=== PATIENT | male | born 1955 | race Caucasian/White ===

== ENCOUNTER 2018-03-10 07:54 | Inpatient (IN) | payer OTHER, SELFPAY ==
[2018-02-26 12:57] VITALS: BMI 34.3
[2018-03-10] VITALS (11 sets, daily range): BP systolic 97–137; BP diastolic 54–76; PULSE 44–60; RESP 14–20; TEMP 36.1–36.8; O2SAT 94–99; BMI 34.3
--- NOTE | 2018-03-10 09:06 | DI.RAD.S_ITS ---
PROCEDURE: XR KNEE LT 1TO2V INDICATIONS: POST OP TECHNIQUE: 2 view(s) of the knee acquired. COMPARISON: None. FINDINGS: Bones: Patient is status post knee joint arthroplasty. Hardware components are in expected positions. Visualized bony structures are intact. Soft tissues: Overlying postoperative changes are noted. IMPRESSION: Post left total knee arthroplasty changes with anatomic alignment. Dictated by: Adryan Echols M.D. on 03/10/2018 at 12:26 Approved by: Adryan Echols M.D. on 03/10/2018 at 12:26
[2018-03-10] MEDS: ACETAMINOPHEN 325 MG TABLET 975 MG PO ×3 (09:22→20:12)
[2018-03-10] MEDS: LACTATED RINGERS 1,000 ML 42 ML IV (09:22)
[2018-03-10] MEDS: CELECOXIB 200 MG CAPSULE PO (09:23)
[2018-03-10] MEDS: PREGABALIN 75 MG CAPSULE PO (09:23)
[2018-03-10 09:39] LABS: BUN Creatinine Ratio 20.9 (6-22); Blood Urea Nitrogen 23 mg/dL (9-20); Calcium 9.5 mg/dL (8.4-10.2); Carbon Dioxide 25 mmol/L (22-32); Chloride 104 mmol/L (98-107); Estimated Glomerular Filt Rate > 60.0 mL/min (>60); Glucose 56 mg/dL (80-110); HEMOLYSIS 19 (0-50); Potassium 3.8 mmol/L (3.4-5.1); Sodium 141 mmol/L (137-145)
--- NOTE | 2018-03-10 09:50 | PM.PREOP ---
Pre-operative Note Interval Note Pre-op Check: Yes History & Physical Reviewed by Physician and Yes Exam Performed Changes: No
--- NOTE | 2018-03-10 10:02 | PM.OP.1 ---
Operative Date/Time/Diagnoses Date of procedure: 03/10/18 Time of procedure: 11:00 Pre-op diagnosis: Left knee osteoarthritis Post-op diagnosis: same Procedure & Clinicians Procedure: Left total knee replacement Same procedure as scheduled: Yes Indications: The patient has had progressively worsening left knee pain with radiographic changes consistent with arthritis. Non-operative management has failed and the patient has requested total knee replacement. The risks, benefits and alternatives to surgery were discussed with the patient prior to proceeding. Risks discussed included, but were not limited to, failure to relieve pain, stiffness, infection, nerve damage, deep venous thrombosis, pulmonary embolism, stroke, coma, heart attack, permanent paralysis and , as well as the potential need for eventual revision of the prosthetic. Surgeon: Gonzalez John Hollow Handle Knife Assembler: Josselin Raymond Click Yes if Unassisted: No Anesthesia Type: General, Spinal and Local Operative Notes Findings: Moderate tricompartmental osteoarthritis of the left knee Closure Type: primary Specimen(s): none sent Implants & Drains: Implants used in this procedure were manufactured by the [employer] and [employer] and included the BCS II Journey total knee replacement with a size 6 left Oxinium BCS II femur, 5 left non porous tibial base plate, 9 mm cross-linked polyethylene BCS II insert and a 32 mm onel II oval patellar component. Applied: implant(s) Estimated Blood Loss (mL): 50 Blood products transfused: none Tourniquet time (min): 52 Procedure in detail: The patient was seen in the pre-operative area, where the left knee was identified as the operative site and this was marked with my initials. The patient received pre-operative antibiotics, and was taken to the operating room and placed on the operative table in the supine position. After satisfactory anesthesia, a hardening machine operator helper out? was performed. The left leg was encircled with a tourniquet about the proximal thigh, and the leg was prepared from the toes to the tourniquet with ChloroPrep in the usual fashion and draped through sterile drapes. The leg was elevated and exsanguinated with Eschmark bandage and the tourniquet inflated to 250 mmHg pressure. The knee was approached through an approximately 18 cm incision centered over the patella and carried into the knee through a medial parapatellar arthrotomy. The anterior osteophytes and soft tissues were removed. The rotational landmarks of Conway's line and the transepicondylar axis were marked on the femur with electrocautery, and intramedullary guide holes for the femur and tibia were created. The distal femoral cut was made in 6 degrees of valgus using the intramedullary guide at the primary cut setting. The proximal tibial cut was then made using the intramedullary guide, taking 9 mm of bone off the less involved side. The extension gap was checked and the rotation of the femoral component confirmed with the gap balancing blocks. The anterior, posterior and chamfer cuts were then made. The posterior osteophytes and soft tissues were then removed. The posterior capsule was injected with part of a mixture of 50 ml 0.25% Marcaine mixed with 20 ml Exparel and 4 mg of morphine for post-operative pain control. The remainder of this mixture was injected into the capsule and subcutaneous tissues during cement curing. The tibia was prepared with the rotation set by an extra medullary guide. Trial tibial and femoral components were then placed and the intercondylar notch cut through the femoral trial. Range of motion was 0-135 degrees, with good stability throughout the range. The patella was then cut to accommodate the patellar prosthetic. There was no need for a lateral release. The trials were then removed, and the femoral hole plugged with a bone plug. The bone was prepared with pulsatile lavage, and dried with a sponge. Cement was applied and the final prosthetics placed. Excess cement was removed during and after cement curing. After confirming there was no extruded cement posteriorly, the final tibial insert was placed. The knee was copiously irrigated and the tourniquet deflated. Hemostasis was obtained. The capsule was closed with interrupted # 2 polyester sutures. The subcutaneous layer was closed with 3-0 Vicryl, and the skin with a running 3-0 V-Lock suture and SteriStrips. An Aquacel Ag dressing was applied and the patient was taken to recovery having tolerated the procedure well. Complications: none Condition: stable Disposition: PACU Plan for aftercare: The patient will be maintained on a standard total knee replacement protocol with weight bearing as tolerated. The patient will receive aspirin and sequential compression devices for DVT prophylaxis. The patient will be discharged home when safe for the home environment.
[2018-03-10] MEDS: CEFAZOLIN 2 GM/100 ML FROZ.PIGGY IV ×2 (10:10→18:15)
--- NOTE | 2018-03-10 10:32 | SUR.OPER ---
Supine on padded OR bed. Pillow under head, arms secured on padded armboards <90 degree abduction. Safety belt across torso. Non-operative leg secured with tape over blanket over lower leg. Operative leg secured in DeMayo/Reg positioner. Foam padded brace at thigh of operative leg.
--- NOTE | 2018-03-10 10:39 | PC.NURSE ---
Day shift: Pt not on AC unit at this time. Will assess when Pt arrives.
--- NOTE | 2018-03-10 10:47 | SUR.OPER ---
Blood glucose checked at 1040 am in OR by DAVONTE Hinojosa BG is 53
[2018-03-10] MEDS: BUPIVACAINE LIPOSOME 266 MG/20 ML VIAL INJ (10:53)
[2018-03-10] MEDS: BUPIVACAINE 0.25% W/ EPI VIAL 50 ML INJ (10:53)
[2018-03-10] MEDS: MORPHINE 4 MG/ML INJ INJ (10:55)
[2018-03-10] MEDS: TRANEXAMIC ACID 1,000 MG VIAL 1000 MG INJ (10:56)
--- NOTE | 2018-03-10 13:02 | PC.NURSE ---
Day shift: Arrived on unit at approx 1230 from PACU. A7ox3. No pain or nausea. PPP and BODY SHOP FLOORPERSON ok. Can't feel his legs yet but can wiggle toes and feet. RA 99%. Denies chest pain or SOB. Oriented to room and call light. Bed alarm is on. Dressing is Aquacel and NEO wrapped and is CDI. Call light in reach. Spouse in room for support.
[2018-03-10] MEDS: LACTATED RINGERS 1,000 ML 125 ML IV ×2 (13:12→22:02)
[2018-03-10] MEDS: OXYCODONE IR 5 MG TABLET PO ×4 (13:43→23:45)
[2018-03-10] MEDS: GABAPENTIN 600 MG TABLET PO ×2 (16:00→20:14)
[2018-03-10] MEDS: GEMFIBROZIL 600 MG TABLET PO (16:43)
[2018-03-10] MEDS: MONTELUKAST 10 MG TABLET PO (16:47)
[2018-03-10] MEDS: METFORMIN HCL 500 MG TABLET PO (16:47)
[2018-03-10] MEDS: hydrOXYzine pamoate 25 MG CAPSULE PO (19:30)
[2018-03-10] MEDS: IBUPROFEN 600 MG TABLET PO (19:31)
[2018-03-10] MEDS: HYDROMORPHONE 1 MG INJ 0.5 MG IV (19:33)
[2018-03-10] MEDS: ASPIRIN EC 81 MG TABLET PO (20:13)
[2018-03-10] MEDS: ATORVASTATIN 20 MG TABLET PO (20:13)
[2018-03-10] MEDS: AMITRIPTYLINE 25 MG TABLET PO (20:13)
[2018-03-10] MEDS: DOCUSATE 100 MG CAPSULE PO (20:13)
[2018-03-10] MEDS: PRAMIPEXOLE 1 MG TABLET 0.5 MG PO (20:14)
[2018-03-10] MEDS: GLIMEPIRIDE 2 MG TABLET PO (20:14)
[2018-03-10] MEDS: INSULIN GLARGINE 100 UNIT/ML 3ML PEN 58 UNIT SUBCUT (20:21)
--- NOTE | 2018-03-10 23:26 | PC.NURSE ---
1600- Dr John contacted and made aware of pt's HR running aprox 40's and low 50's, which is pt's baseline also. A/O x3, pain to L knee rated 5-7/10 and managed with percolone 5mg Q-3hr, Ibuprofen 600mg PRN, scheduled tylenol 975mg, vistaril 25mg PRN, and dilaudid 0.5mg IVP PRN. Left knee aquacell/acewrap with small shadow drainage and marked boarder, CDI. 98% RA, LS clear, Hx FUENTES, own CPAP for sleep with no O2 bleed-in.Calf SCD's on. Lt hand LR @ 125, BT+ denies nausea, CMS ++ with slight edema to left ankle. Using urinal to void clear yellow urine. CBG 83 and 118, and takes 58 units lantus at bedtime. Signif other rooming in. Call light in reach and bed alarm on.
[2018-03-11] VITALS (7 sets, daily range): BP systolic 122–127; BP diastolic 64–69; PULSE 53–64; RESP 16–18; TEMP 36.7–37; O2SAT 95–98
[2018-03-11] MEDS: CEFAZOLIN 2 GM/100 ML FROZ.PIGGY IV (01:57)
[2018-03-11] MEDS: OXYCODONE IR 5 MG TABLET PO ×4 (03:36→12:42)
[2018-03-11] MEDS: hydrOXYzine pamoate 25 MG CAPSULE PO ×2 (03:36→12:42)
[2018-03-11] MEDS: HYDROMORPHONE 1 MG INJ 0.5 MG IV (06:08)
[2018-03-11] MEDS: IBUPROFEN 600 MG TABLET PO (06:14)
[2018-03-11] MEDS: LACTATED RINGERS 1,000 ML 125 ML IV (06:15)
[2018-03-11 06:19] LABS: Hematocrit 32.9 % (41-53); Hemoglobin 11.6 g/dL (13.5-17.5)
[2018-03-11] MEDS: LEVOTHYROXINE 125 MCG TABLET PO (06:52)
--- NOTE | 2018-03-11 08:28 | PT.IIE ---
Addendum entered and electronically signed by Zuleyma Patino, PT 03/11/18 08:29: I directly supervised and guided this session. Magaly Patino DPRamo Original Note: Current Diagnoses Bilateral primary osteoarthritis of knee (03/10/18) Surgery Performed Operation Date: 03/10/18 10:00 Actual Procedures p Total Knee Arthroplasty(Left) - Gonzalez John MD Surgical History (Last Updated 02/26/18 @ 13:11 by Jacqui Chambers RN) Hx of arthroscopy of left knee (Acute) Hx of elbow surgery (Acute) Hx of shoulder surgery (Acute) Hx of thyroidectomy (Acute) Medical History (Last Updated 02/26/18 @ 13:11 by Jacqui Chambers RN) Asthma (Acute) COPD (chronic obstructive pulmonary disease) (Acute) Diabetes (Acute) Gout (Acute) HTN (hypertension) (Acute) Sleep apnea with use of continuous positive airway pressure (CPAP) (Acute) Physical Therapy Inpatient Evaluation/Re-Eval M1 PT/OT-IP Prior Functional Status Start: 03/10/18 15:40 Freq: NEEDED Status: Active Protocol: Document 03/10/18 15:01 (Rec: 03/10/18 16:09 [email or web address]) Medical Review Prior Functional Status Medical History Reviewed Yes Communication pt able to communicate needs. Prior Functional Level (Other details) Pt reports prior independence with all mobililities including cooking, cleaning, self care, inhome and community ambulation. No assistive devices needed or used. Social History Household Members significant other Living Arrangements House Number of Floors (Floors) One Floor Number of Stairs To Enter/Railing? 1 platform step. No rail. Home Environment High Toilet Tub/Shower Home Equipment Front Wheel Walker Straight Cane Hand Held Shower Grab Bars Near Toilet Additional Social History Comment Works for the [employer] and is able to return to work when he feels ready. Job requires lots of sitting and standing. M2 PT-IP Current Condition Start: 03/10/18 15:40 Freq: NEEDED Status: Active Protocol: Document 03/10/18 15:01 (Rec: 03/10/18 16:05 [email or web address]) Physical Therapy Current Condition Current Condition Evaluation Date 03/10/18 Treatment Diagnosis s/p L TKA Onset Date 03/10/18 Weight Bearing Status Weight Bearing Status Weight Bear as Tolerated M3 PT-IP Subjective Start: 03/10/18 15:40 Freq: NEEDED Status: Active Protocol: Document 03/10/18 15:01 (Rec: 03/10/18 16:05 [email or web address]) Subjective Physical Therapy Visit Type Type Initial Evaluation Visit Start Time 15:01 Visit Stop Time 15:37 Total Visit Minutes 36 Number of CLERICAL SUPERVISOR Visits 0 Physical Therapy Visit Comments Patient Comments Pt feeling ready to try PT. States he can feel his legs and pain is 0/10. Patient Goals The pt plans to d/c home with significant other who is present at this session. Therapy Pain Assessment Pain When Pain Assessed During Exercise Pain Present Pain Present Pain Reported Location Knee Intensity 6 Scale Used Numeric (1 - 10) Pain Management Techniques Apply Cold Timing of Activity with Medications M4 PT-IP Mobility and Gait Start: 03/10/18 15:40 Freq: NEEDED Status: Active Protocol: Document 03/10/18 15:01 (Rec: 03/10/18 16:05 [email or web address]) PT-Bed Mobility Assessment Supine to Sit Supine to Sit Standby Assistance Sit to Supine Sit to Supine Standby Assistance Scooting Scooting to Edge of Bed Standby Assistance Scooting Up and Down in Bed Standby Assistance PT-Transfer Assessment Sit to and From Stand Sit to and from Stand Standby Assistance Equipment Transfer Assistive Device Gait Belt Front Wheeled Walker Comments Mobility Comments All in bed mobilities and sit <> stand are SBA due resting HR low (46 bpm) and symptoms at EOB of dizziness. Dizziness subsides after 2 mins. VSS remain WNL. Gait Assessment Gait Gait Assistance Required: Contact Guard Assist Distance (Feet) 50 Able to Maintain Weight Bearing Status Yes During Gait Assistive Devices Assistive Device Gait Belt Front Wheeled Walker PT-Balance Assessment Sitting Balance and Reactions Static Sitting Balance Ability Fair Dynamic Sitting Balance Ability Fair Standing Balance and Reactions Static Standing Balance Ability Fair Dynamic Standing Balance Ability Fair M5 PT-IP Objective Assessments Start: 03/10/18 15:40 Freq: NEEDED Status: Active Protocol: Document 03/10/18 15:01 (Rec: 03/10/18 16:05 [email or web address]) Orientation Orientation/Cognition Level of Alertness Alert Orientation Name Age Birthday Date Place Situation Gross Range of Motion Lower Extremity ROM Assessment Left Impaired Impairments L knee flexion approx 40 deg Strength Lower Extremity Strength Assessment Within Functional Limits Comments Strength Comments Strength grades 5/5 B for hip flexion, knee flexion, and ankle PF/DF. 3+/5 for knee extension on L. Sensation Assessment Sensation Gross Sensation WNL Comments Sensation Comments light touch on bottom of L foot is intact. M6 PT-IP Treatment Start: 03/10/18 15:40 Freq: NEEDED Status: Active Protocol: Document 03/10/18 15:01 (Rec: 03/10/18 16:05 [email or web address]) Physical Therapy Treatment Exercises Exercises Ankle Pumps Quad Sets Heel Slides Straight Leg Raises Short Arc Quads Education Education Provided Precautions Weight Bearing Status Post-Op Packet Safety M7 PT-IP Assessment and Plan Start: 03/10/18 15:40 Freq: NEEDED Status: Active Protocol: Document 03/10/18 15:01 (Rec: 03/10/18 16:05 [email or web address]) PT Summary Assessment and Plan Potential Rehabilitation Potential Good Status of Condition at Evaluation Stable Summary Impairments Pain ROM Strength Balance Gait Activity Tolerance Progress Towards Goals Progressing Toward Goals Assessment Summary Pt s/p L TKA. His primary impairment noted thus far is limited gait distance and speed. He ambulated 50 ft. CGA with c/o of dizziness. Recommend discharge to home with 24/7 assist and f/u in OP PT once he is able to demonstrate safety with ambulation and 1 platform step SBA. Goals Bed Mobility Goal Independent Transfer Goal Standby Assistance Gait Goal Standby Assistance Gait Distance 150 Other Goals Complete safe ascend/descend platform step X1 with SBA as needed for safe access to home . Frequency of Treatment Frequency Of Treatment Twice a Day Treatment Plan Physical Therapy Treatment Plan Transfer Training Gait Training Therapeutic Exercise Balance Retraining Post Op Education Hot or Cold Pack Neuromuscular Re-ed Coordination Retraining Other Recommendations and Next Treatment Progress gait training. Focus Assess pt function up/down platform step X1. Recommend CGA. Recommendations To Nursing Amount of Assist Needed 1 Person Assist Discharge Recommendations PT Discharge Recommendations Home with 24/7 Assist Outpatient PT
--- NOTE | 2018-03-11 08:36 | PT.IPTN ---
Current Diagnoses Bilateral primary osteoarthritis of knee (03/10/18) Surgery Performed Operation Date: 03/10/18 10:00 Actual Procedures p Total Knee Arthroplasty(Left) - Gonzalez John MD Physical Therapy Treatment Note M2 PT-IP Current Condition Start: 03/10/18 15:40 Freq: NEEDED Status: Active Protocol: Document 03/10/18 15:01 (Rec: 03/10/18 16:05 [email or web address]) Physical Therapy Current Condition Current Condition Evaluation Date 03/10/18 Treatment Diagnosis s/p L TKA Onset Date 03/10/18 Weight Bearing Status Weight Bearing Status Weight Bear as Tolerated M3 PT-IP Subjective Start: 03/10/18 15:40 Freq: NEEDED Status: Active Protocol: Document 03/11/18 08:34 EA (Rec: 03/11/18 08:36 EA [id number]) Subjective Physical Therapy Visit Type Type Patient Refusal Notes At 820 today, patient approach for possible PT session, however refused as he wants to have BF. Agreeable to see after BF. M4 PT-IP Mobility and Gait Start: 03/10/18 15:40 Freq: NEEDED Status: Active Protocol: Document 03/10/18 15:01 (Rec: 03/10/18 16:05 [email or web address]) PT-Bed Mobility Assessment Supine to Sit Supine to Sit Standby Assistance Sit to Supine Sit to Supine Standby Assistance Scooting Scooting to Edge of Bed Standby Assistance Scooting Up and Down in Bed Standby Assistance PT-Transfer Assessment Sit to and From Stand Sit to and from Stand Standby Assistance Equipment Transfer Assistive Device Gait Belt Front Wheeled Walker Comments Mobility Comments All in bed mobilities and sit <> stand are SBA due resting HR low (46 bpm) and symptoms at EOB of dizziness. Dizziness subsides after 2 mins. VSS remain WNL. Gait Assessment Gait Gait Assistance Required: Contact Guard Assist Distance (Feet) 50 Able to Maintain Weight Bearing Status Yes During Gait Assistive Devices Assistive Device Gait Belt Front Wheeled Walker PT-Balance Assessment Sitting Balance and Reactions Static Sitting Balance Ability Fair Dynamic Sitting Balance Ability Fair Standing Balance and Reactions Static Standing Balance Ability Fair Dynamic Standing Balance Ability Fair M5 PT-IP Objective Assessments Start: 03/10/18 15:40 Freq: NEEDED Status: Active Protocol: Document 03/10/18 15:01 (Rec: 03/10/18 16:05 [email or web address]) Orientation Orientation/Cognition Level of Alertness Alert Orientation Name Age Birthday Date Place Situation Gross Range of Motion Lower Extremity ROM Assessment Left Impaired Impairments L knee flexion approx 40 deg Strength Lower Extremity Strength Assessment Within Functional Limits Comments Strength Comments Strength grades 5/5 B for hip flexion, knee flexion, and ankle PF/DF. 3+/5 for knee extension on L. Sensation Assessment Sensation Gross Sensation WNL Comments Sensation Comments light touch on bottom of L foot is intact. M6 PT-IP Treatment Start: 03/10/18 15:40 Freq: NEEDED Status: Active Protocol: Document 03/10/18 15:01 (Rec: 03/10/18 16:05 [email or web address]) Physical Therapy Treatment Exercises Exercises Ankle Pumps Quad Sets Heel Slides Straight Leg Raises Short Arc Quads Education Education Provided Precautions Weight Bearing Status Post-Op Packet Safety M7 PT-IP Assessment and Plan Start: 03/10/18 15:40 Freq: NEEDED Status: Active Protocol: Document 03/10/18 15:01 (Rec: 03/10/18 16:05 [email or web address]) PT Summary Assessment and Plan Potential Rehabilitation Potential Good Status of Condition at Evaluation Stable Summary Impairments Pain ROM Strength Balance Gait Activity Tolerance Progress Towards Goals Progressing Toward Goals Assessment Summary Pt s/p L TKA. His primary impairment noted thus far is limited gait distance and speed. He ambulated 50 ft. CGA with c/o of dizziness. Recommend discharge to home with 24/7 assist and f/u in OP PT once he is able to demonstrate safety with ambulation and 1 platform step SBA. Goals Bed Mobility Goal Independent Transfer Goal Standby Assistance Gait Goal Standby Assistance Gait Distance 150 Other Goals Complete safe ascend/descend platform step X1 with SBA as needed for safe access to home . Frequency of Treatment Frequency Of Treatment Twice a Day Treatment Plan Physical Therapy Treatment Plan Transfer Training Gait Training Therapeutic Exercise Balance Retraining Post Op Education Hot or Cold Pack Neuromuscular Re-ed Coordination Retraining Other Recommendations and Next Treatment Progress gait training. Focus Assess pt function up/down platform step X1. Recommend CGA. Recommendations To Nursing Amount of Assist Needed 1 Person Assist Discharge Recommendations PT Discharge Recommendations Home with 24/7 Assist Outpatient PT
--- NOTE | 2018-03-11 08:41 | CM.DANOTE ---
DCP: Case received, EMR reviewed and met with patient. Introduced self and role. DCP template completed with information currently available. Patient is a 62 year old male who admitted yesterday morning to the care of the hospitalist team. PCP: Dr. Lr. Payer: confirmed: [employer] Patient came into hospital for a left total knee arthroplasty. Patient is alert and oriented, is independent. Lives in [place] with his significant other, and has additional room mates. Patient has no concerns with discharge, as long as he is working with physical therapy. P: DCP to continue to assess. Patient may pursue outpatient physical therapy upon discharge, and will be dependent upon progress in hospital with physical therapy team. Quin Gamino RN/Machine Wood Sander
--- NOTE | 2018-03-11 08:45 | PM.DS.1 ---
History of Present Illness Date Patient Seen: 03/11/18 Time Patient Seen: 08:45 Chief complaint: [id number] LEFT TOTAL KNEE ARTHROPLASTY Narrative: Patient has history of left knee osteoarthritis. Brought to hospital on 03/10/2018 for left total knee arthroplasty by Dr. John. He remained stable postoperatively. Discharge Providers Date of admission: 03/10/18 07:54 Consults: 03/10/18 12:52 Consult to Discharge Planning Routine Comment: Consult to Physical Therapy Evaluate & Treat Comment: Physician Instructions: postop TKA protocol Discharge provider: Naveen Babin PA-C Discharge Date: 03/11/18 Summary Discharge Diagnosis: Status post left total knee arthroplasty by Dr. John Hospital Course: Patient remained stable overnight postop left total knee arthroplasty. Did physical therapy on postop day. Gradually progressed. Ready for discharge to home on postop day 1. He does have physical therapy scheduled at [facility] in [place]. Status at Discharge Functional status at discharge: uses cane/walker Overall status at discharge: other (Patient gradually improving with weight-bearing and range of motion of left knee.) Time Spent with Patient Less than 30 minutes Exam Vital Signs (past 8 hours): - 03/11/18 03:19 03/11/18 04:00 03/11/18 05:30 Temperature 98.6 F Pulse Rate 64 Respiratory Rate 18 Blood Pressure 122/64 Pulse Oximetry 95 95 98 03/11/18 06:00 03/11/18 07:30 03/11/18 08:10 Temperature 98.0 F Pulse Rate 53 L 55 L Respiratory Rate 18 16 Blood Pressure 127/69 Pulse Oximetry 95 95 98 Oxygen Delivery Method Room Air Narrative Exam Narrative: Alert, oriented no acute distress lying in bed. Left leg. Anthony wrap an Aquacel dressing intact with small amount of shadowing. Mild swelling of the knee and lower leg. Calf soft nontender. Good pulses and sensation to her foot. Objective Labs Result Diagrams: 03/11/18 05:50 03/10/18 09:15 Labs: Laboratory Results - last 24 hr 03/10/18 03/11/18 09:15 05:50 Hgb 11.6 L Hct 32.9 L Sodium 141 Potassium 3.8 Chloride 104 Carbon Dioxide 25 BUN 23 H Creatinine 1.10 Estimated GFR > 60.0 BUN/Creatinine Ratio 20.9 Glucose 56 L Calcium 9.5 Discharge Plan Discharge Plan Patient Disposition: Home Discharge comment: Postop appointment on 03/14/2018 at [facility] office. Discharge Med Rec/Prescriptions Prescriptions: No Action levothyroxine 125 mcg Capsule 125 mcg PO DAILY Qty: 0 RF: 0 furosemide 40 mg Tablet 40 mg PO DAILY RF: 0 metformin 500 mg Tablet 500 mg PO BID RF: 0 atorvastatin 20 mg Tablet 20 mg PO BEDTIME RF: 0 insulin glargine [Lantus U-100 Insulin] 100 unit/mL Solution 58 unit SUBCUT BEDTIME RF: 0 lisinopril 20 mg Tablet 2.5 mg PO DAILY RF: 0 glimepiride 2 mg Tablet 2 mg PO BID RF: 0 pramipexole 0.5 mg Tablet 0.5 mg PO BEDTIME RF: 0 amitriptyline 25 mg Tablet 25 mg PO BEDTIME RF: 0 gemfibrozil 600 mg Tablet 600 mg PO BID RF: 0 gabapentin 300 mg Capsule 600 mg PO TID RF: 0 montelukast 10 mg Tablet 10 mg PO QPM RF: 0 insulin aspart U-100 [Novolog Flexpen U-100 Insulin] 100 unit/mL Insulin Pen 15 unit SUBCUT TID RF: 0 fenofibrate 150 mg Capsule 150 mg PO DAILY RF: 0 amlodipine 10 mg Tablet 10 mg PO DAILY RF: 0 Provider Discharge Instructions Diet: Diet as Tolerated Activity: Gradually increase weight-bearing to left leg as tolerated. Continue with [id number] exercises postoperative until starting PT. Cold/Heat Therapy: Ice to knee as needed. Skin/Wound/Dressing Care Report to your healthcare provider any signs of infection, such as:: chills, fever, night sweats, increased pain and unusual drainage Dressing: Keep Aquacel dressing in place until postop visit. Visit Report/Discharge Packet Instructions: DI for Knee Replacement Discharge Data Attending Provider: Gonzalez John Admit Date/Time: 03/10/18 07:54 Quality VTE Deep Vein Thrombosis/Pulmonary Embolism Present on Admission: No
--- NOTE | 2018-03-11 08:52 | P.DS_ITS ---
History of Present Illness Date Patient Seen: 03/11/18 Time Patient Seen: 08:45 Chief complaint: [id number] LEFT TOTAL KNEE ARTHROPLASTY Narrative: Patient has history of left knee osteoarthritis. Brought to hospital on 03/10/2018 for left total knee arthroplasty by Dr. John. He remained stable postoperatively. Discharge Providers Date of admission: 03/10/18 07:54 Consults: 03/10/18 12:52 Consult to Discharge Planning Routine Comment: Consult to Physical Therapy Evaluate & Treat Comment: Physician Instructions: postop TKA protocol Discharge provider: Naveen Babin PA-C Discharge Date: 03/11/18 Summary Discharge Diagnosis: Status post left total knee arthroplasty by Dr. John Hospital Course: Patient remained stable overnight postop left total knee arthroplasty. Did physical therapy on postop day. Gradually progressed. Ready for discharge to home on postop day 1. He does have physical therapy scheduled at [facility] in [place]. Status at Discharge Functional status at discharge: uses cane/walker Overall status at discharge: other (Patient gradually improving with weight- bearing and range of motion of left knee.) Time Spent with Patient Less than 30 minutes Exam Vital Signs (past 8 hours): - 03/11/18 03:19 03/11/18 04:00 03/11/18 05:30 Temperature 98.6 F Pulse Rate 64 Respiratory Rate 18 Blood Pressure 122/64 Pulse Oximetry 95 95 98 03/11/18 06:00 03/11/18 07:30 03/11/18 08:10 Temperature 98.0 F Pulse Rate 53 L 55 L Respiratory Rate 18 16 Blood Pressure 127/69 Pulse Oximetry 95 95 98 Oxygen Delivery Method Room Air Narrative Exam Narrative: Alert, oriented no acute distress lying in bed. Left leg. Anthony wrap an Aquacel dressing intact with small amount of shadowing. Mild swelling of the knee and lower leg. Calf soft nontender. Good pulses and sensation to her foot. Objective Labs Result Diagrams: 03/11/18 05:50 03/10/18 09:15 Labs: Laboratory Results - last 24 hr 03/10/18 03/11/18 09:15 05:50 Hgb 11.6 L Hct 32.9 L Sodium 141 Potassium 3.8 Chloride 104 Carbon Dioxide 25 BUN 23 H Creatinine 1.10 Estimated GFR > 60.0 BUN/Creatinine Ratio 20.9 Glucose 56 L Calcium 9.5 Discharge Plan Discharge Plan Patient Disposition: Home Discharge comment: Postop appointment on 03/14/[address] [facility] office. Discharge Med Rec/Prescriptions Prescriptions: No Action levothyroxine 125 mcg Capsule 125 mcg PO DAILY Qty: 0 RF: 0 furosemide 40 mg Tablet 40 mg PO DAILY RF: 0 metformin 500 mg Tablet 500 mg PO BID RF: 0 atorvastatin 20 mg Tablet 20 mg PO BEDTIME RF: 0 insulin glargine [Lantus U-100 Insulin] 100 unit/mL Solution 58 unit SUBCUT BEDTIME RF: 0 lisinopril 20 mg Tablet 2.5 mg PO DAILY RF: 0 glimepiride 2 mg Tablet 2 mg PO BID RF: 0 pramipexole 0.5 mg Tablet 0.5 mg PO BEDTIME RF: 0 amitriptyline 25 mg Tablet 25 mg PO BEDTIME RF: 0 gemfibrozil 600 mg Tablet 600 mg PO BID RF: 0 gabapentin 300 mg Capsule 600 mg PO TID RF: 0 montelukast 10 mg Tablet 10 mg PO QPM RF: 0 insulin aspart U-100 [Novolog Flexpen U-100 Insulin] 100 unit/mL Insulin Pen 15 unit SUBCUT TID RF: 0 fenofibrate 150 mg Capsule 150 mg PO DAILY RF: 0 amlodipine 10 mg Tablet 10 mg PO DAILY RF: 0 Provider Discharge Instructions Diet: Diet as Tolerated Activity: Gradually increase weight-bearing to left leg as tolerated. Continue with [id number] exercises postoperative until starting PT. Cold/Heat Therapy: Ice to knee as needed. Skin/Wound/Dressing Care Report to your healthcare provider any signs of infection, such as:: chills, fever, night sweats, increased pain and unusual drainage Dressing: Keep Aquacel dressing in place until postop visit. Visit Report/Discharge Packet Instructions: DI for Knee Replacement Discharge Data Attending Provider: Gonzalez John Admit Date/Time: 03/10/18 07:54 Quality VTE Deep Vein Thrombosis/Pulmonary Embolism Present on Admission: No
--- NOTE | 2018-03-11 08:54 | PM.DS.1 ---
History of Present Illness Chief complaint: [id number] LEFT TOTAL KNEE ARTHROPLASTY Narrative: Patient has history of left knee osteoarthritis. Brought to hospital on 03/10/2018 for left total knee arthroplasty by Dr. John. He remained stable postoperatively. Discharge Providers Date of admission: 03/10/18 07:54 Consults: 03/10/18 12:52 Consult to Discharge Planning Routine Comment: Consult to Physical Therapy Evaluate & Treat Comment: Physician Instructions: postop TKA protocol Discharge provider: Naveen Babin PA-C Discharge Date: 03/11/18 Exam Vital Signs (past 8 hours): - 03/11/18 03:19 03/11/18 04:00 03/11/18 05:30 Temperature 98.6 F Pulse Rate 64 Respiratory Rate 18 Blood Pressure 122/64 Pulse Oximetry 95 95 98 03/11/18 06:00 03/11/18 07:30 03/11/18 08:10 Temperature 98.0 F Pulse Rate 53 L 55 L Respiratory Rate 18 16 Blood Pressure 127/69 Pulse Oximetry 95 95 98 Oxygen Delivery Method Room Air Objective Labs Result Diagrams: 03/11/18 05:50 03/10/18 09:15 Labs: Laboratory Results - last 24 hr 03/10/18 03/11/18 09:15 05:50 Hgb 11.6 L Hct 32.9 L Sodium 141 Potassium 3.8 Chloride 104 Carbon Dioxide 25 BUN 23 H Creatinine 1.10 Estimated GFR > 60.0 BUN/Creatinine Ratio 20.9 Glucose 56 L Calcium 9.5 Discharge Plan Discharge Plan Patient Disposition: Home Discharge comment: Postop appointment on 03/14/2018 at [facility] office. Discharge Med Rec/Prescriptions Prescriptions: New aspirin 81 mg Tablet,Delayed Release (Dr/Ec) 81 mg PO BID Qty: 60 RF: 0 Continue levothyroxine 125 mcg Capsule 125 mcg PO DAILY Qty: 0 RF: 0 furosemide 40 mg Tablet 40 mg PO DAILY RF: 0 metformin 500 mg Tablet 500 mg PO BID RF: 0 atorvastatin 20 mg Tablet 20 mg PO BEDTIME RF: 0 insulin glargine [Lantus U-100 Insulin] 100 unit/mL Solution 58 unit SUBCUT BEDTIME RF: 0 lisinopril 20 mg Tablet 2.5 mg PO DAILY RF: 0 glimepiride 2 mg Tablet 2 mg PO BID RF: 0 pramipexole 0.5 mg Tablet 0.5 mg PO BEDTIME RF: 0 amitriptyline 25 mg Tablet 25 mg PO BEDTIME RF: 0 gemfibrozil 600 mg Tablet 600 mg PO BID RF: 0 gabapentin 300 mg Capsule 600 mg PO TID RF: 0 montelukast 10 mg Tablet 10 mg PO QPM RF: 0 insulin aspart U-100 [Novolog Flexpen U-100 Insulin] 100 unit/mL Insulin Pen 15 unit SUBCUT TID RF: 0 fenofibrate 150 mg Capsule 150 mg PO DAILY RF: 0 amlodipine 10 mg Tablet 10 mg PO DAILY RF: 0 Provider Discharge Instructions Diet: Diet as Tolerated Activity: Gradually increase weight-bearing to left leg as tolerated. Continue with [id number] exercises postoperative until starting PT. Cold/Heat Therapy: Ice to knee as needed. Skin/Wound/Dressing Care Dressing: Keep Aquacel dressing in place until postop visit. Visit Report/Discharge Packet Instructions: DI for Knee Replacement Discharge Data Attending Provider: Gonzalez John Admit Date/Time: 03/10/18 07:54 Quality VTE Deep Vein Thrombosis/Pulmonary Embolism Present on Admission: No
--- NOTE | 2018-03-11 08:58 | P.DS_ITS ---
History of Present Illness Chief complaint: [id number] LEFT TOTAL KNEE ARTHROPLASTY Narrative: Patient has history of left knee osteoarthritis. Brought to hospital on 03/10/2018 for left total knee arthroplasty by Dr. John. He remained stable postoperatively. Discharge Providers Date of admission: 03/10/18 07:54 Consults: 03/10/18 12:52 Consult to Discharge Planning Routine Comment: Consult to Physical Therapy Evaluate & Treat Comment: Physician Instructions: postop TKA protocol Discharge provider: Naveen Babin PA-C Discharge Date: 03/11/18 Exam Vital Signs (past 8 hours): - 03/11/18 03:19 03/11/18 04:00 03/11/18 05:30 Temperature 98.6 F Pulse Rate 64 Respiratory Rate 18 Blood Pressure 122/64 Pulse Oximetry 95 95 98 03/11/18 06:00 03/11/18 07:30 03/11/18 08:10 Temperature 98.0 F Pulse Rate 53 L 55 L Respiratory Rate 18 16 Blood Pressure 127/69 Pulse Oximetry 95 95 98 Oxygen Delivery Method Room Air Objective Labs Result Diagrams: 03/11/18 05:50 03/10/18 09:15 Labs: Laboratory Results - last 24 hr 03/10/18 03/11/18 09:15 05:50 Hgb 11.6 L Hct 32.9 L Sodium 141 Potassium 3.8 Chloride 104 Carbon Dioxide 25 BUN 23 H Creatinine 1.10 Estimated GFR > 60.0 BUN/Creatinine Ratio 20.9 Glucose 56 L Calcium 9.5 Discharge Plan Discharge Plan Patient Disposition: Home Discharge comment: Postop appointment on 03/14/2018 at [facility] office. Discharge Med Rec/Prescriptions Prescriptions: New aspirin 81 mg Tablet,Delayed Release (Dr/Ec) 81 mg PO BID Qty: 60 RF: 0 Continue levothyroxine 125 mcg Capsule 125 mcg PO DAILY Qty: 0 RF: 0 furosemide 40 mg Tablet 40 mg PO DAILY RF: 0 metformin 500 mg Tablet 500 mg PO BID RF: 0 atorvastatin 20 mg Tablet 20 mg PO BEDTIME RF: 0 insulin glargine [Lantus U-100 Insulin] 100 unit/mL Solution 58 unit SUBCUT BEDTIME RF: 0 lisinopril 20 mg Tablet 2.5 mg PO DAILY RF: 0 glimepiride 2 mg Tablet 2 mg PO BID RF: 0 pramipexole 0.5 mg Tablet 0.5 mg PO BEDTIME RF: 0 amitriptyline 25 mg Tablet 25 mg PO BEDTIME RF: 0 gemfibrozil 600 mg Tablet 600 mg PO BID RF: 0 gabapentin 300 mg Capsule 600 mg PO TID RF: 0 montelukast 10 mg Tablet 10 mg PO QPM RF: 0 insulin aspart U-100 [Novolog Flexpen U-100 Insulin] 100 unit/mL Insulin Pen 15 unit SUBCUT TID RF: 0 fenofibrate 150 mg Capsule 150 mg PO DAILY RF: 0 amlodipine 10 mg Tablet 10 mg PO DAILY RF: 0 Provider Discharge Instructions Diet: Diet as Tolerated Activity: Gradually increase weight-bearing to left leg as tolerated. Continue with [id number] exercises postoperative until starting PT. Cold/Heat Therapy: Ice to knee as needed. Skin/Wound/Dressing Care Dressing: Keep Aquacel dressing in place until postop visit. Visit Report/Discharge Packet Instructions: DI for Knee Replacement Discharge Data Attending Provider: Gonzalez John Admit Date/Time: 03/10/18 07:54 Quality VTE Deep Vein Thrombosis/Pulmonary Embolism Present on Admission: No
[2018-03-11] MEDS: ACETAMINOPHEN 325 MG TABLET 975 MG PO (10:07)
[2018-03-11] MEDS: AMLODIPINE 5 MG TABLET 10 MG PO (10:08)
[2018-03-11] MEDS: GLIMEPIRIDE 2 MG TABLET PO (10:08)
[2018-03-11] MEDS: GABAPENTIN 600 MG TABLET PO (10:08)
[2018-03-11] MEDS: ASPIRIN EC 81 MG TABLET PO (10:08)
[2018-03-11] MEDS: DOCUSATE 100 MG CAPSULE PO (10:08)
[2018-03-11] MEDS: METFORMIN HCL 500 MG TABLET PO (10:09)
[2018-03-11] MEDS: FENOFIBRATE 145 MG TABLET PO (10:09)
[2018-03-11] MEDS: LISINOPRIL 5 MG TABLET 2.5 MG PO (10:09)
[2018-03-11] MEDS: GEMFIBROZIL 600 MG TABLET PO (10:09)
--- NOTE | 2018-03-11 10:31 | PT.IPTN ---
Current Diagnoses Bilateral primary osteoarthritis of knee (03/10/18) Surgery Performed Operation Date: 03/10/18 10:00 Actual Procedures p Total Knee Arthroplasty(Left) - Gonzalez John MD Physical Therapy Treatment Note M2 PT-IP Current Condition Start: 03/10/18 15:40 Freq: NEEDED Status: Active Protocol: Document 03/10/18 15:01 (Rec: 03/10/18 16:05 [email or web address]) Physical Therapy Current Condition Current Condition Evaluation Date 03/10/18 Treatment Diagnosis s/p L TKA Onset Date 03/10/18 Weight Bearing Status Weight Bearing Status Weight Bear as Tolerated M3 PT-IP Subjective Start: 03/10/18 15:40 Freq: NEEDED Status: Active Protocol: Document 03/11/18 09:00 CLB (Rec: 03/11/18 10:22 CLB [id number]) Subjective Physical Therapy Visit Type Type Treatment Note Visit Start Time 09:00 Visit Stop Time 09:45 Notes Pt willing to do therapy. Number of FURNACE REPAIR MECHANIC Visits 1 Physical Therapy Visit Comments Patient Comments Pt stated his pain is a little higher but the stiffness is worse. Patient Goals The pt plans to d/c home with significant other who is present at this session. Therapy Pain Assessment Pain When Pain Assessed During Mobility Pain Present Pain Present Pain Reported Location Knee Intensity 5 Scale Used Numeric (1 - 10) Pain Management Techniques Apply Cold Timing of Activity with Medications M4 PT-IP Mobility and Gait Start: 03/10/18 15:40 Freq: NEEDED Status: Active Protocol: Document 03/11/18 09:00 CLB (Rec: 03/11/18 10:22 CLB [id number]) PT-Bed Mobility Assessment Supine to Sit Supine to Sit Standby Assistance Sit to Supine Sit to Supine Standby Assistance Scooting Scooting to Edge of Bed Standby Assistance Scooting Up and Down in Bed Standby Assistance PT-Transfer Assessment Sit to and From Stand Sit to and from Stand Standby Assistance Equipment Transfer Assistive Device Gait Belt Front Wheeled Walker Comments Mobility Comments Pt HR 57 before tx increased to 74 with bed mobility. Gait Assessment Gait Gait Assistance Required: Standby Assistance Distance (Feet) 200 Able to Maintain Weight Bearing Status Yes During Gait Assistive Devices Assistive Device Gait Belt Front Wheeled Walker Gait Deviations General Gait Pattern Antalgic Decreased Stride Length Decreased Feet Clearance Step-to Gait Factors Limiting Gait Function Factors Limiting Gait Function Decreased Activity Tolerance Decreased Strength Limited Range of Motion Pain Comments Gait Comments Pt able to ambulate to stairs ~200 ft. Pt has increased use of UE on walker but using small step through gait pattern. Stair Climbing Assessment Evaluation Level of Assist On Stairs Contact Guard Assistance 1 Person Assistance Devices Stair Climbing Assistive Devices Front Wheel Walker Technique/Endurance Stair Climbing Technique Step to Step Number of Steps Climbed 1 Query Text: Stair Climbing Set # Repetitions (reps) 2 Comments Stair Climbing Comments Pt able to perform stair training with assisting. M5 PT-IP Objective Assessments Start: 03/10/18 15:40 Freq: NEEDED Status: Active Protocol: Document 03/10/18 15:01 (Rec: 03/10/18 16:05 [email or web address]) Orientation Orientation/Cognition Level of Alertness Alert Orientation Name Age Birthday Date Place Situation Gross Range of Motion Lower Extremity ROM Assessment Left Impaired Impairments L knee flexion approx 40 deg Strength Lower Extremity Strength Assessment Within Functional Limits Comments Strength Comments Strength grades 5/5 B for hip flexion, knee flexion, and ankle PF/DF. 3+/5 for knee extension on L. Sensation Assessment Sensation Gross Sensation WNL Comments Sensation Comments light touch on bottom of L foot is intact. M6 PT-IP Treatment Start: 03/10/18 15:40 Freq: NEEDED Status: Active Protocol: Document 03/11/18 09:00 CLB (Rec: 03/11/18 10:22 CLB [id number]) Physical Therapy Treatment Exercises Exercises Ankle Pumps Quad Sets Heel Slides Straight Leg Raises Short Arc Quads Education Education Provided Precautions Weight Bearing Status Post-Op Packet Safety M7 PT-IP Assessment and Plan Start: 03/10/18 15:40 Freq: NEEDED Status: Active Protocol: Document 03/11/18 09:00 CLB (Rec: 03/11/18 10:22 CLB [id number]) PT Summary Assessment and Plan Summary Impairments Pain ROM Strength Balance Gait Activity Tolerance Progress Towards Goals Progressing Toward Goals Assessment Summary Pt successfully completed stair training with assisting. Pt is SBA for bed mobility with Min A of LLE( able to assist pt). Pt ambulated ~200ft SBA with use of UE with step through gait pattern. Pt seems able to d/c home with 24/7 assist of when medically stable. Goals Bed Mobility Goal Independent Transfer Goal Standby Assistance Gait Goal Standby Assistance Gait Distance 150 Other Goals Complete safe ascend/descend platform step X1 with SBA as needed for safe access to home . Frequency of Treatment Frequency Of Treatment Twice a Day Recommendations To Nursing Amount of Assist Needed 1 Person Assist Discharge Recommendations PT Discharge Recommendations Home with 24/12 Assist Outpatient PT
--- NOTE | 2018-03-11 12:46 | PC.NURSE ---
Day shift: Pt left unit via WC with CAGE CASHIER and spouse to private car at approx 1245. Paperwork signed and all questions answered. Medicated for pain just prior to d/c per EMAR. Has all personal belongings.
== END 2018-03-11 13:12 | disposition home or self-care (01) | DRG 470 ==
PROVIDERS: Anesthesiology; Admitting Provider Orthopaedic Surgery; Visit Provider Orthopaedic Surgery
PROC: 0SRD0JZ Replacement of Left Knee Joint with Synthetic Substitute, Open Approach (ICD-10-PCS; CPT 27447; principal; 2018-03-10 10:00)
DX: M17.12 Unilateral primary osteoarthritis, left knee (principal); E11.9 Type 2 diabetes mellitus without complications; Z79.4 Long term (current) use of insulin; E07.9 Disorder of thyroid, unspecified; G47.33 Obstructive sleep apnea (adult) (pediatric); I10 Essential (primary) hypertension; M10.9 Gout, unspecified; J44.9 Chronic obstructive pulmonary disease, unspecified; Z87.891 Personal history of nicotine dependence
CPT/HCPCS: 36415; 73560; 80048; 85014; 85018; 94760; 97110; 97116; 97161; C1776; C9290; J0690; J1170; J2250; J2270

== ENCOUNTER → 2020-07-05 10:00 | Outpatient (CLI) | payer MEDICARE, SELFPAY ==
[2018-03-10 13:24] VITALS: BMI 34.3
[2020-07-05 10:55] LABS: Hemoglobin A1C% w Est Avg Glu 7.7 % (4.0-6.0)
[2020-07-05 11:00] LABS: Add Manual Diff / Slide Review NO; Basophils Absolute Auto 0 /uL (0-100); Basophils Percent Auto 0.5 % (0-2); Eosinophils Absolute Auto 100 /uL (0-450); Eosinophils Percent Auto 2.6 % (2-4); Hematocrit 35.8 % (41-53); Hemoglobin 12.4 g/dL (13.5-17.5); Lymphocytes Absolute Auto 800 /uL (1100-4500); Lymphocytes Percent Auto 17.5 % (25-40); Mean Corpuscular HGB Conc 34.7 % (30-36); Mean Corpuscular Hemoglobin 33.1 PG (26-34); Mean Corpuscular Volume 95.3 fL (80-100); Monocytes Absolute Auto 400 /uL (0-900); Monocytes Percent Auto 9.7 % (3-14); Neutrophils Absolute Auto 3000 /uL (1500-7000); Neutrophils Percent Auto 69.7 % (50-75); Platelet Count 161 X10^3/uL (150-400); Red Blood Cell Count 3.76 X10^6/uL (4.5-5.9); Red Cell Distribution Width 14.5 % (11.6-14.8); White Blood Cell Count 4.4 X10^3/uL (4.5-11.0)
[2020-07-05 11:11] LABS: BUN Creatinine Ratio 23.2 (6-22); Blood Urea Nitrogen 22 mg/dL (9-20); Calcium 9.3 mg/dL (8.4-10.2); Carbon Dioxide 27 mmol/L (22-32); Chloride 103 mmol/L (98-107); Estimated Glomerular Filt Rate > 60.0 mL/min (>60); Glucose 103 mg/dL (80-110); HEMOLYSIS 22 (0-50); Potassium 3.9 mmol/L (3.4-5.1); Sodium 140 mmol/L (137-145)
== END ==
PROVIDERS: Referring Provider Orthopaedic Surgery Adult Reconstructive Orthopaedic Surgery; Visit Provider Orthopaedic Surgery Adult Reconstructive Orthopaedic Surgery
DX: Z01.818 Encounter for other preprocedural examination (principal); Z01.812 Encounter for preprocedural laboratory examination; R73.9 Hyperglycemia, unspecified
CPT/HCPCS: 36415; 80048; 83036; 85025; 93005

== ENCOUNTER 2020-07-27 09:02 | Day surgery (SDC) | payer MEDICARE, SELFPAY ==
[2018-03-10 13:24] VITALS: BMI 34.3
[2020-07-27] VITALS (13 sets, daily range): BP systolic 95–163; BP diastolic 51–88; PULSE 55–77; RESP 12–20; TEMP 36.3–36.7; O2SAT 92–99; BMI 32.3
[2020-07-27] MEDS: LACTATED RINGERS 1,000 ML 42 ML IV (09:59)
--- NOTE | 2020-07-27 11:23 | PM.PREOP ---
Pre-operative Note COVID-19 COVID-19 status: Negative Result date/Date tested (Pos, Neg/Pending): 07/25/20 Interval Note History & Physical reviewed/Exam performed by Physician: Yes Changes to H&P: No H&P completed within 30 days and has changed as indicated here:: Plan for left knee partial patelectomy, reinforcement of extensor mechanism with alolgraft, possible quad turndown
[2020-07-27] MEDS: CEFAZOLIN 2 GM/100 ML FROZ.PIGGY IV ×2 (11:57→20:05)
[2020-07-27] MEDS: TRANEXAMIC ACID 1,000 MG VIAL 2000 MG INJ (12:10)
--- NOTE | 2020-07-27 12:21 | SUR.OPER ---
Supine on padded OR bed. Pillow under head, arms secured on padded armboards <90 degree abduction. Safety belt across torso. Non-operative leg secured with tape over blanket over lower leg. Operatiive leg on Nathe foam roll positioner, under control of surgeon. Foam padded brace at thigh of operative leg.
[2020-07-27] MEDS: ROPIVACAINE 0.5% PF 5 MG/ML 20ML VIAL 40 ML INJ (12:27)
[2020-07-27] MEDS: MORPHINE 4 MG/ML INJ INJ (12:28)
[2020-07-27] MEDS: KETOROLAC 30 MG/ML VIAL IV (12:28)
--- NOTE | 2020-07-27 13:56 | PM.OP.1 ---
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 Surgeon: Gigi Pond Health Information Management Director: Raphael Leone Anesthesia Type: General Operative Notes Findings: Fragmented left patella with AVN and with loose patellar button component. Closure Type: primary Specimen(s): none sent Prosthetic devices, grafts, tissues, transplants, or devices: [employer] 2 left, size 5-6 constrained 11 mm articular polyethylene Achilles tendon without bone 30 cm in length Estimated Blood Loss (mL): 100 Tourniquet time (min): 60 Procedure in detail: Patient was met in the preoperative holding area where the site and side of surgery were marked by . Informed consent had been signed in clinic but was also reviewed in the preoperative holding area. Risks and benefits were discussed. Risks include infection, extensor lag, need for future surgeries, incomplete relief of symptoms, continued fragmentation, fracture, damage to local structures such as vessels nerves, DVT, PE, , etc.. Patient demonstrates understanding the risks and benefits and wishes to proceed. Patient was then brought back in the operating room where he was induced under general anesthesia. A nonsterile tourniquet was then placed in the left thigh and left lower extremity then prepped and draped in normal sterile fashion. A surgical time-out was performed verifying the site and side of surgery as well as the name of the patient. The left lower extremity was then exsanguinated using Esmarch and a tourniquet was inflated 250 mm of mercury. His previous anterior knee incision was used for the revision a 10. Blade was used to open up the skin and the incision was extended approximately 2 cm proximal. Medial and lateral flaps were then elevated with a new 10. Blade. At this point our medial parapatellar arthrotomy was marked out and fusion could be felt in the knee as well as bony fragments. Medial parapatellar arthrotomy was then performed copious synovial fluid was aspirated and the patellar button was loose within the joint and was removed. A medial peel was then performed as well as loosening of the patella from the anterior tibia a partial synovectomy was then performed as well as clearing of the medial and lateral gutters. At this point the patella was able to be everted there was 1 large bony fragment which was attached to the extensor mechanism still as well as a fragment which was medial to this which was rather small and this was removed using electrocautery. Due to fragmentation of the patella there were small bony and cement fragments within the knee. I could see the polyethylene was undergoing accelerated wear. The polyethylene was then removed back the knee was also cleaned the knee was then pulse lavaged with normal saline to remove any bony fragments and a new polyethylene was placed. I decided to go with a constrained polyethylene do the extensor mechanism weakness with AVM. A size 5 6 left 11 mm thick constrained polyethylene was then placed. Verifying the both medial and lateral tabs were well seated. The patellar fragment which remained attached to the extensor mechanism was too thin to resurface. At this point a large lateral release was performed to help with realignment of the bony fragment into the trochlear groove. A [id number] closure of the medial parapatellar arthrotomy was performed using 1. Vicryl in interrupted fashion. Achilles allograft was then overlaid the extensor mechanism and tacked down into place using 1. Vicryl in interrupted fashion followed b interrupted FiberWire 2. The Achilles was then trimmed to size. Two Vicryl was then used in the subcutaneous layer followed by fareed on skin. Complications: none Post-operative Condition: stable Disposition: PACU Plan for aftercare: WBAT in a knee immobilizer. OK to bend knee to 15 degrees when not weight bearing, 24 hours post-op abx, ASA 81mg BID for 6 weeks for DVT prophylaxis
[2020-07-27] MEDS: fentaNYL 100 MCG/2 ML INJ IV ×2 (14:23→14:30)
[2020-07-27] MEDS: OXYCODONE IR 5 MG TABLET PO ×3 (14:32→18:05)
[2020-07-27] MEDS: ACETAMINOPHEN 325 MG TABLET 650 MG PO ×2 (16:35→20:01)
[2020-07-27] MEDS: MONTELUKAST 10 MG TABLET PO (16:35)
[2020-07-27] MEDS: LACTATED RINGERS 1,000 ML 100 ML IV (16:36)
[2020-07-27] MEDS: ASPIRIN EC 81 MG TABLET PO (20:01)
[2020-07-27] MEDS: GABAPENTIN 600 MG TABLET PO (20:01)
[2020-07-27] MEDS: DOCUSATE 100 MG CAPSULE PO (20:01)
[2020-07-27] MEDS: ATORVASTATIN 20 MG TABLET PO (20:01)
[2020-07-27] MEDS: METFORMIN HCL 500 MG TABLET PO (20:01)
[2020-07-27] MEDS: GLIMEPIRIDE 2 MG TABLET PO (20:01)
[2020-07-27] MEDS: PRAMIPEXOLE 0.25 MG TABLET 0.5 MG PO (20:02)
[2020-07-27] MEDS: gemfibroziL 600 MG TABLET PO (20:02)
[2020-07-27] MEDS: AMITRIPTYLINE 25 MG TABLET PO (20:06)
[2020-07-27 21:36] LABS: Add Manual Diff / Slide Review NO; Basophils Absolute Auto 100 /uL (0-100); Eosinophils Absolute Auto 100 /uL (0-450); Eosinophils Percent Auto 1.4 % (2-4); Hematocrit 32.7 % (41-53); Hemoglobin 11.4 g/dL (13.5-17.5); Lymphocytes Absolute Auto 1000 /uL (1100-4500); Lymphocytes Percent Auto 14.9 % (25-40); Mean Corpuscular Hemoglobin 32.8 PG (26-34); Mean Corpuscular Volume 93.7 fL (80-100); Monocytes Absolute Auto 600 /uL (0-900); Monocytes Percent Auto 8.4 % (3-14); Neutrophils Absolute Auto 5200 /uL (1500-7000); Neutrophils Percent Auto 74.3 % (50-75); Platelet Count 217 X10^3/uL (150-400); Red Blood Cell Count 3.48 X10^6/uL (4.5-5.9)
[2020-07-27] MEDS: INSULIN GLARGINE 100 UNIT/ML 3ML PEN 42 UNIT SUBCUT (22:13)
[2020-07-28] MEDS: CEFAZOLIN 2 GM/100 ML FROZ.PIGGY IV (03:27)
[2020-07-28 03:31] VITALS: BP 116/75; PULSE 70; RESP 18; TEMP 36.2; O2SAT 95
[2020-07-28] MEDS: OXYCODONE IR 5 MG TABLET PO ×2 (04:22→08:39)
[2020-07-28 05:41] LABS: Hematocrit 31.2 % (41-53); Hemoglobin 10.8 g/dL (13.5-17.5)
[2020-07-28] MEDS: LEVOTHYROXINE 125 MCG TABLET PO (06:12)
--- NOTE | 2020-07-28 08:23 | P.PN_ITS ---
Subjective Subjective Date Patient Seen: 07/28/20 Time Patient Seen: 08:23 Interval history: POD #1 s/p Left knee partial patellectomy, polyethylene exchange, patellar button removal, and extensor mechanism reinforcement with allograft with Dr. Pond. Patient's pain is well controlled. He does complain of shooting pain in his quad and knee. Voiding without difficulty or assistance. Exam Vital Signs (past 8 hours): - 07/28/20 03:31 Temperature 97.1 F L Pulse Rate 70 Respiratory Rate 18 Blood Pressure 116/75 Pulse Oximetry 95 Oxygen Delivery Method Room Air,CPAP Oxygen Flow Rate 0 Narrative Exam Narrative: Patient sitting up in bed in NAD. He is alert and oriented X3. Calves are soft, compressible, and nontender bilaterally. SILT throughout BLEs. SCDs on and functioning. DP pulses symmetrical. He is able to actively dorsiflex and plantarflex. Dressing is CDI. Objective Labs Result Diagrams: 07/28/20 05:21 Labs: Laboratory Results - last 24 hr 07/27/20 07/28/20 21:19 05:21 WBC 7.0 RBC 3.48 L Hgb 11.4 L 10.8 L Hct 32.7 L 31.2 L MCV 93.7 MCH 32.8 MCHC 35.0 RDW 14.0 Plt Count 217 Neut % (Auto) 74.3 Lymph % (Auto) 14.9 L [place] % (Auto) 8.4 Eos % (Auto) 1.4 L Baso % (Auto) 1.0 Neut # (Auto) 5200 Lymph # (Auto) 1000 L [place] # (Auto) 600 Eos # (Auto) 100 Baso # (Auto) 100 PFSH Medical History Asthma Closed fracture of left patella with delayed healing COPD (chronic obstructive pulmonary disease) Diabetes Gout HTN (hypertension) Sleep apnea with use of continuous positive airway pressure (CPAP) Thyroid disease Surgical History History of total knee arthroplasty Hx of arthroscopy of left knee Hx of elbow surgery Hx of shoulder surgery Hx of thyroidectomy Social History household members: significant other Smoking Status: Former smoker alcohol intake: current Assessment & Plan Post-op Postoperative Procedures: Procedures Operation Date: 07/27/20 10:45 Actual Procedures Side Surgeon p partial patellectomy and poly exchange, allograft reinforcement of extensor mechanism Left Gigi Pond MD Patient can mobilize with PT today. WBAT in knee immobilizer. Ok to bend to 15 degrees when not weight bearing. ASA for VTE prophylaxis. Will start muscle relaxant for muscle spasms. Continue oxycodone. Patient will likely DC home today. Quality VTE Deep Vein Thrombosis/Pulmonary Embolism Present on Admission: No
[2020-07-28] MEDS: ACETAMINOPHEN 325 MG TABLET 650 MG PO (08:35)
[2020-07-28] MEDS: ASPIRIN EC 81 MG TABLET PO (08:36)
[2020-07-28] MEDS: DOCUSATE 100 MG CAPSULE PO (08:36)
[2020-07-28] MEDS: AMLODIPINE 5 MG TABLET 10 MG PO (08:36)
[2020-07-28] MEDS: GLIMEPIRIDE 2 MG TABLET PO (08:37)
[2020-07-28] MEDS: gemfibroziL 600 MG TABLET PO (08:37)
[2020-07-28] MEDS: FENOFIBRATE 145 MG TABLET PO (08:37)
[2020-07-28] MEDS: FUROSEMIDE 40 MG TABLET PO (08:37)
[2020-07-28] MEDS: GABAPENTIN 600 MG TABLET PO (08:37)
[2020-07-28 08:38] VITALS: BP 118/71; PULSE 67
[2020-07-28] MEDS: lisinopriL 5 MG TABLET 2.5 MG PO (08:38)
[2020-07-28] MEDS: METFORMIN HCL 500 MG TABLET PO (08:39)
[2020-07-28 08:41] VITALS: BP 118/71; PULSE 65; RESP 18; TEMP 36.2; O2SAT 98
--- NOTE | 2020-07-28 09:24 | CM.DANOTE ---
Patient is a 64 year old male who was admitted on 07/27/20 for LTK Revision. Pt has [facility] for insurance and his PCP is in [facility]. EMR was reviewed. Per Ortho, pt tolerated procedure well and his second knee surgery on the left and likely stable for d/c after PT eval and recommendations today. SW met bedside with pt and spouse Mary Ann and they confirm they live in [place] and pt is mostly independent with ADL's although knee pain has limited him lately. Pt has a cane that he uses for long distances and still drives some and spouse can provide assist at d/c. Pt states he has an outpt PT facility close to his house in [place] that he is calling to set up outpt PT after he gets home. Pt and spouse do not anticipate any needs at d/c and spouse can provide transport. Pt still having fair amount of pain but just received pain medication to help with his PT eval this morning. Plan: SW to follow closely after PT eval this morning and recommendations to determine if pt safe for d/c home today via spouse POV and any further needs. NEMESIO Gloria Discharge Planning/Care Management CM Discharge Assessment Start: 07/28/20 09:22 Freq: Status: Active Protocol: Document 07/28/20 09:22 BF (Rec: 07/28/20 09:23 [id number]) Discharge Planning Assessment Assigned Assayer Helper NEMESIO Jones DPOA/Assigned Designee Name Mary Ann spouse Advance Directives? No: Declines further information Advance Directives on File No History Provided By Patient,Medical Record Has Patient been admitted in last 30 No days? Prior Living Arrangements Apartment/Condo Household Members significant other Type of transporation used prior to Drives own vehicle admit Independent with ADL's Yes Is patient alert and oriented? Yes Caregiver for Another No Community Services used prior to Physical Therapy admission: DME Already Rented / Owned Cane Patient/Family Preference OP PT Therapy Barriers to Discharge No Discharge Plan Home Community Services Physical Therapy Transportation Arrangement Significant other Referrals Initiated None needed Whiteboard Updated in Patient Room with Yes name and ext. # of Assayer Helper Review Status In Process Please Provide Date Initial DC 07/28/20 Assessment Was Performed Next Review Type Continued Stay Review Pre-Anesthesia Assessment Start: 07/19/20 10:58 Freq: Status: Active Protocol: Document 07/19/20 10:58 [facility] (Rec: 07/19/20 11:06 [facility] [id number]) Pre-Anesthesia Assessment Patient Information Reviewed Via Chart Review Diagnostic Results BMP/CMP,CBC,EKG Comment A1c Seen Specialist in Last 12 Months Yes Specialist Seen Orthopedist Preferred Language Hebrew Height 182.88 cm Hx Anesthesia Reactions No Hx Family Anesthesia Reaction No Hx Malignant Hyperthermia No Hx Blood Transfusions No Permit Coordinator No alcohol intake former Smoking Status Former smoker Tobacco type cigarettes how long ago did patient quit smoking Quit approx 4 years ago, smoked x 26 years overall Substance Use Type does not use Does patient have [place]/SOB No Hx Sleep Apnea Yes CPAP/BIPAP use prescribed and used routinely Can You Climb a Flight of Stairs Without Yes SOB Hx Chest Pain No Hx SOB No Hx Syncope or Dizziness No Cardiac Testing No Hx Pacemaker/ICD No Hx Urinary Self Catheterization No Diabetes Yes Hx Drug Resistant Organism No Presence of External or Internal Medical Yes: L TKA Devices Lives With significant other Patient Discharge Plan Description Return Home Do You Have Any Spiritual Beliefs That No May Affect Your HC Choices? Do You Have Any Cultural Practices That No May Affect Your HC Choices? Emergency Contact Name Sierra White (KarenOYany) Emergency Contact Advance Directives? No: Declines further information Power of Composite Bond Technician No
--- NOTE | 2020-07-28 10:02 | PT.IIE ---
Current Diagnoses Displaced comminuted fracture of left patella, subsequent encounter for closed fracture with delayed healing (07/27/20) Presence of left artificial knee joint (07/27/20) Surgery Performed Operation Date: 07/27/20 10:45 Actual Procedures p partial patellectomy and poly exchange, allograft reinforcement of extensor mechanism(Left) - Gigi Pond MD Surgical History (Last Reviewed 07/28/20 @ 08:25 by Blanca Galindo PA-C) History of total knee arthroplasty Hx of arthroscopy of left knee Hx of elbow surgery Hx of shoulder surgery Hx of thyroidectomy Medical History (Last Reviewed 07/28/20 @ 08:24 by Blanca Galindo PA-C) Asthma Closed fracture of left patella with delayed healing COPD (chronic obstructive pulmonary disease) Diabetes Gout HTN (hypertension) Sleep apnea with use of continuous positive airway pressure (CPAP) Thyroid disease Physical Therapy Inpatient Evaluation/Re-Eval M1 PT/OT-IP Prior Functional Status Start: 07/28/20 11:07 Freq: NEEDED Status: Active Protocol: Document 07/28/20 10:02 AB (Rec: 07/28/20 11:21 AB [id number]) Medical Review Prior Functional Status Medical History Reviewed Yes Communication able to make needs known Mobility and Gait pt stated that he is independent with all mobilities and ambulation without AD Social History Household Members significant other Living Arrangements Apartment/Condo Number of Floors (Floors) Two Floors Number of Stairs To Enter/Railing? 1 step to enter ; pt will stay on main level of the house Home Environment Standard Height Toilet,Tub/ Shower Home Equipment Straight Cane,Hand Held Shower Additional Social History Comment spouse stated that they are going to get a FWW and a tub transfer bench on their way home M2 PT-IP Current Condition Start: 07/28/20 11:07 Freq: NEEDED Status: Active Protocol: Document 07/28/20 10:02 AB (Rec: 07/28/20 11:21 AB [email or web address]) Physical Therapy Current Condition Current Condition Evaluation Date 07/28/20 Treatment Diagnosis s/p L knee partial patellectomy; difficulty in walking Onset Date 07/27/20 Precautions Brace L knee immobilizer Other Precautions MD order: ok to bend knee to 15 degrees when not weight bearing Weight Bearing Status Weight Bearing Status Weight Bear as Tolerated Allowed Weight Bearing Amount (enter % LLE WBAT with knee immobilizer or #) (%) M3 PT-IP Subjective Start: 07/28/20 11:07 Freq: NEEDED Status: Active Protocol: Document 07/28/20 10:02 AB (Rec: 07/28/20 11:21 AB [email or web address]) Subjective Physical Therapy Visit Type Type Initial Evaluation Visit Start Time 10:02 Visit Stop Time 10:32 Total Visit Minutes 30 Number of SENIOR NETWORK ENGINEER Visits 0 Physical Therapy Visit Comments Patient Comments pt is agreeable to do PT Therapy Pain Assessment Pain When Pain Assessed At Rest Pain Present Pain Present Pain Reported Location Knee Intensity 7 Scale Used Numeric (0 - 10) Pain Management Techniques Distraction,Elevation, Modification of Treatment,Re- positioning,Timing of Activity with Medications M4 PT-IP Mobility and Gait Start: 07/28/20 11:07 Freq: NEEDED Status: Active Protocol: Document 07/28/20 10:02 AB (Rec: 07/28/20 11:21 AB [id number]) PT-Bed Mobility Assessment Supine to Sit Supine to Sit Minimal Assistance,1 Person Assistance PT-Transfer Assessment Sit to and From Stand Sit to and from Stand Standby Assistance,Contact Guard Assistance,Use of Upper Extremities Equipment Transfer Assistive Device Gait Belt,Front Wheeled Walker Orthotic/Prosthetic Devices or Brace: Yes Transfers Transfer Destination Chair Transfer Technique ambulated using FWW Transfer Ability Level of Assist Standby Assistance,Contact Guard Assistance,1 Person Assistance,Use of Upper Extremities Comments Mobility Comments educated pt on precautions. educated pt and spouse regarding donning/doffing of knee immobilizer. pt completed supine to sit min A for LLE movement to EOB. pt was able to sit on EOB SBA. completed sit to stand CGA and ambulated in room ~ 40 ft with initial CGA but after a few feet only required SBA. pt agreed to do platform set. completed sit to stand SBA from EOB ambulated to the platform step ~ 30 ft using FWW SBA. completed up/down step CGA with cues on first set but able to complete without cues on 2nd set. instructed spouse on how to assist pt for safety. pt agreed to sit up on chair. positioned. call light and table placed within reach. left pt with spouse. Gait Assessment Gait Gait Assistance Required: Standby Assistance,Contact Guard Assist Distance (Feet) 40 Able to Maintain Weight Bearing Status Yes During Gait Assistive Devices Assistive Device Gait Belt,Front Wheeled Walker Orthotic/Prosthetic Devices or Brace: Yes Gait Deviations General Gait Pattern Antalgic,Decreased Stride Length,Decreased Feet Clearance Factors Limiting Gait Function Factors Limiting Gait Function Decreased Activity Tolerance, Decreased Strength,Limited Range of Motion,Pain,Poor Balance Stair Climbing Assessment Evaluation Level of Assist On Stairs Standby Assistance,Contact Guard Assistance Devices Stair Climbing Assistive Devices Front Wheel Walker Technique/Endurance Stair Climbing Direction Ascend and Descend Stair Climbing Technique Step to Step Number of Steps Climbed 1 Query Text: Stair Climbing Set # Repetitions (reps) 2 PT-Balance Assessment Sitting Balance and Reactions Static Sitting Balance Ability Good Dynamic Sitting Balance Ability Good Standing Balance and Reactions Static Standing Balance Ability Fair Dynamic Standing Balance Ability Fair Device Used FWW M5 PT-IP Objective Assessments Start: 07/28/20 11:07 Freq: NEEDED Status: Active Protocol: Document 07/28/20 10:02 AB (Rec: 07/28/20 11:[facility] Orientation Orientation/Cognition Level of Alertness Alert Orientation Name,Age,Birthday,Month,Date, Year,Day of Week,Place, Situation Language Function Ability No Deficits Noted Safety Awareness Understands Safety Issues Memory Description Short Term Impaired Gross Range of Motion Lower Extremity ROM Assessment Left Impaired Impairments L knee on knee immobilizer: only allowed 15 deg of knee bend when not weight bearing per MD order Strength Lower Extremity Strength Assessment Left Impaired Knee 3-/5 Coordination Assessment Gross Coordination Gross Coordination WNL Sensation Assessment Sensation Gross Sensation WNL Muscle Tone Muscle Tone WNL Yes M6 PT-IP Treatment Start: 07/28/20 11:07 Freq: NEEDED Status: Active Protocol: Document 07/28/20 10:02 AB (Rec: 07/28/20 11:21 AB [id number]) Physical Therapy Treatment Education Education Provided Precautions,Weight Bearing Status,Safety Brace Education [place],Patient, Caregiver M7 PT-IP Assessment and Plan Start: 07/28/20 11:07 Freq: NEEDED Status: Active Protocol: Document 07/28/20 10:02 AB (Rec: 07/28/20 11:21 [email or web address]) PT Summary Assessment and Plan Potential Rehabilitation Potential Good Status of Condition at Evaluation Stable Summary Impairments Pain,ROM,Strength,Balance,Bed Mobility,Transfers,Gait, Activity Tolerance Assessment Summary pt requiring SBA to CGA with mobility and uses a FWW for ambulation. pt plans to go home and spouse to assist him. pt may go home when medicall stable. pt stated that he is set up for outpt PT. Goals Bed Mobility Goal Independent Transfer Goal Independent,Front Wheeled Walker Gait Goal Independent,Front Wheel Walker Gait Distance 200 Other Goals up/down 1 step using FWW mod I Days to Meet Goals 3 Frequency of Treatment Frequency Of Treatment Twice a Day Treatment Plan Physical Therapy Treatment Plan Bed Mobility Training,Transfer Training,Gait Training, Therapeutic Exercise,Balance Retraining,Post Op Education, Discharge Planning,Hot or Cold Pack,Neuromuscular Re-ed, Coordination Retraining Recommendations To Nursing Amount of Assist Needed Standby Assistance Discharge Recommendations PT Discharge Recommendations Home with Assistance, Outpatient PT Transportation Needs at Discharge Private Vehicle
--- NOTE | 2020-07-28 10:34 | PC.NURSE ---
Addendum entered by Charlotte Harris R.N. 07/28/20 11:08: IV removed by student nurse, this RN present. Catheter intact. Patient dressed. Education given regarding medications, activity, showering and follow up appointment. and patient verbalized understanding. Patient discharged via wheelchair with aide assist. Original Note: Patient A/O x 4 this AM. Knee remains in immobilizer, ice packs, Aquacel and NEO wrap intact. Dsg is CDI. Patient reports pain, 7/10, PRN medication administered. Patient tolerating ambulation with FWW. Patient up with PT, denies dizziness, lightheadedness, chest pain. BT active x 4, patient reports he is passing flatus. Voiding in urinal. Saline locked at this patient. Patient is tolerating PO diet. Call light in reach.
== END 2020-07-28 11:30 | disposition home or self-care (01) ==
LOC: OR 09:05 → AC 09:06
PROVIDERS: Referring Provider Orthopaedic Surgery Adult Reconstructive Orthopaedic Surgery; Visit Provider Orthopaedic Surgery Adult Reconstructive Orthopaedic Surgery
PROC: (CPT 27524; principal; 2020-07-27 10:45)
DX: S82.042A Displaced comminuted fracture of left patella, initial encounter for closed fracture (principal); M87.08 Idiopathic aseptic necrosis of bone, other site; T84.038A Mechanical loosening of other internal prosthetic joint, initial encounter; Z96.652 Presence of left artificial knee joint; J44.9 Chronic obstructive pulmonary disease, unspecified; E11.9 Type 2 diabetes mellitus without complications; I10 Essential (primary) hypertension; G47.30 Sleep apnea, unspecified; Z79.84 Long term (current) use of oral hypoglycemic drugs
CPT/HCPCS: 27381; 27350; 36415; 82962; 85014; 85018; 85025; 97161; C1776; J0690; J1885; J2270; J2704; J3010